=== PATIENT | female | born 1950 | race Caucasian/White ===

== ENCOUNTER → 2019-11-11 | Outpatient (CLI) | payer MEDICARE, BC ==
[~2019-11-11] MED LIST: ATARAX PO; NEXIUM; NEXIUM40 MG PO; ZOLOFT
--- NOTE | 2019-11-11 09:26 | Diagnostic Imaging Report ---
EXAMINATION: CT of the abdomen and pelvis without contrast. TECHNIQUE: Spiral CT images of the abdomen and pelvis were performed from the lung bases to the lesser trochanters. No intravenous contrast was given per referring physician request. Coronal and sagittal reformatted images were obtained. COMPARISON: None. CLINICAL HISTORY:Abdominal pain, rectal pressure, rectal mass DISCUSSION: ABSENCE OF INTRAVENOUS CONTRAST DECREASES SENSITIVITY FOR DETECTION OF FOCAL LESIONS AND VASCULAR PATHOLOGY. ABDOMEN/PELVIS: LOWER THORAX: Minimal reticular opacities in the dependent lower lobes, likely atelectasis. Coronary artery calcifications. HEPATOBILIARY:No focal hepatic lesion or intrahepatic biliary dilatation. Small radiopaque calculi in the dependent gallbladder. No pericholecystic inflammation. SPLEEN: No splenomegaly or focal splenic lesion. PANCREAS: No focal masses or ductal dilatation. ADRENALS: No adrenal nodules. KIDNEYS/URETERS: No hydronephrosis, calculi, or solid or cystic mass lesions. PELVIC ORGANS/BLADDER: Urinary bladder is incompletely distended but otherwise unremarkable. Uterus is neutral in position and appears normal for age. No adnexal mass. PERITONEUM/RETROPERITONEUM: No ascites or pneumoperitoneum. LYMPH NODES: No pelvic sidewall, retroperitoneal, or mesenteric lymphadenopathy. There is an enlarged right mesorectal lymph nodes (8 mm) as seen on image 65. Additionally, there is a mildly enlarged left inguinal lymph node of abnormal morphology measuring 1.2 cm short axis. No fatty hilum is visualized. VESSELS: Atherosclerotic calcification of the abdominal aorta and major branch vessels without aneurysmal dilatation. Evaluation is otherwise limited in the absence of intravenous contrast. GI TRACT: Suspected nearly concentric rectal wall thickening to maximum of 1.5 cm as depicted on axial image 76. Large bowel is otherwise unremarkable, without additional wall thickening or distention. Appendix is normal. Large sliding hiatal hernia. No small bowel dilatation to suggest obstruction. BONES AND SOFT TISSUES: No osseous destructive lesions. Multilevel degenerative disc changes and facet arthropathy of the lumbar spine. No focal soft tissue abnormalities. IMPRESSION: Findings are concerning for a near circumferential rectal mass lesion, in keeping with the provided clinical history of rectal mass, and a prominent mesorectal lymph node is concerning for regional spread. Direct visualization by colonoscopy is suggested if not already performed. 1.2 cm left inguinal lymph node is of abnormal morphology and is not in the expected yakelin drainage pattern for a rectal malignancy. Tissue sampling of this node should be considered. Additional findings include a large hiatal hernia, cholelithiasis, and atherosclerotic vascular disease. Signed by: Dr. Ovi Alvarado M.D. on 11/11/2019 9:22 AM
== END ==
LOC: CT 07:24
PROVIDERS: ATTEND Internal Medicine Gastroenterology
DX: R10.84 Generalized abdominal pain (principal); K62.9 Disease of anus and rectum, unspecified
CPT/HCPCS: 74176

== ENCOUNTER → 2019-11-27 | Day surgery (SDC) | payer MEDICARE, BC, OTHER ==
[2019-11-24 14:01] LABS: BASOPHILS % 0.4 % (0.0-1.0); EOSINOPHILS # (AUTO) 0.2 (0.0-0.4); EOSINOPHILS % 1.9 % (0.0-6.0); HEMATOCRIT 40.9 % (34.2-44.1); LYMPHOCYTES # (AUTO) 2.6 (1.0-3.2); LYMPHOCYTES % 28.6 % (18.0-39.1); MEAN CORPUSCULAR HEMOGLOBIN 26.7 pg (28-32); MEAN CORPUSCULAR HGB CONC 31.8 g/dL (31-35); MEAN CORPUSCULAR VOLUME 84.2 fL (81-99); MONOCYTES # (AUTO) 0.6 (0.2-0.8); MONOCYTES % 7.1 % (4.4-11.3); NEUTROPHILS # (AUTO) 5.6 (2.1-6.9); NEUTROPHILS % 61.8 % (38.7-80.0); PLATELET COUNT 250 x10e3/uL (140-360); RED BLOOD COUNT 4.86 x10e6/uL (3.6-5.1); RED CELL DISTRIBUTION WIDTH 13.4 % (11.7-14.4)
[~2019-11-27] MED LIST changes: +ATENOLOL50 MG PO; +EPHEDRINE SULFATE INJ 50 MG/ML VIAL ONE; +ETOMIDATE 2 MG/ML 10 ML INJ IV ONE; +FENTANYL CITRATE/PF 100MCG/2 ML INJ ONE; +HYDROXYZINE HCL10 MG PO; +HYOSCYAMINE 0.125 MG TAB ONE; +LIDOCAINE HCL 2% LOCAL INJ 5 ML SDV VIAL INJ ONE; +PANTOPRAZOLE SO40 MG PO; +PROPOFOL IV EMULSION 10 MG/ML 20 ML VIAL ONE; +SERTRALINE HCL50 MG PO; +SIMVASTATIN20 MG PO
[2019-11-27 15:45] VITALS: BP 119/71
--- NOTE | 2019-11-27 16:24 | Operative Report ---
DATE OF PROCEDURE: 11/27/2019 SURGEON: Hector Ordaz MD PROCEDURES: Colonoscopy with polypectomy and biopsies. INDICATIONS FOR COLONOSCOPY: Rectal bleeding, anorectal pain. MEDICATIONS: The patient was done under MAC, please see anesthesiologist's note. PROCEDURE IN DETAIL: With the patient in left lateral decubitus position, a flexible fiberoptic Olympus colonoscope could not be inserted into the rectum due to the tightness of the anal canal caused by possibly an infiltrating tumor. The flexible fiberoptic Olympus gastroscope was then introduced into the rectum and a large 3/4 circumferential mass that was fungating, was noted to extend approximately 4 to 5 cm from the anal verge and appears to be extending through the dentate line. Biopsies were obtained for both frozen section as well as permanent section. The scope was then advanced all the way to the cecum. It was then withdrawn slowly, mucosa overlying the cecum, ascending colon, transverse colon appeared to be within normal limits. Two minute polyps were hot biopsied from the descending colon. The sigmoid colon appeared to be within normal limits. The scope was subsequently withdrawn. The patient tolerated the procedure well. IMPRESSION: 1. Descending colon polyps x2, minute, removed per hot biopsy forceps. 2. Rectal mass, 3/4 circumferential, extending approximately 4 cm from the anal verge and appears to extend through the dentate line. Multiple biopsies were obtained for both frozen and permanent sections. Initial reading on the frozen section is suspicious for anal cancer. The patient tolerated procedure well. PLAN: 1. Followup histology. 2. Oncology consult and a General Surgical consult will be requested. Hector Ordaz MD [facility] [place]/[facility] [place] /[id number] cc: MD Ronen Lester MD Andrew Metz, DO
== END | disposition home or self-care (01) ==
LOC: OR 10:50
PROVIDERS: ATTEND Internal Medicine Gastroenterology
DX: C20 Malignant neoplasm of rectum (principal); D12.4 Benign neoplasm of descending colon; K21.9 Gastro-esophageal reflux disease without esophagitis; K44.9 Diaphragmatic hernia without obstruction or gangrene; K58.9 Irritable bowel syndrome, unspecified; I10 Essential (primary) hypertension; E78.00 Pure hypercholesterolemia, unspecified; R53.1 Weakness; R00.1 Bradycardia, unspecified; F41.9 Anxiety disorder, unspecified; Z01.810 Encounter for preprocedural cardiovascular examination; Z01.812 Encounter for preprocedural laboratory examination; Z11.59 Encounter for screening for other viral diseases
CPT/HCPCS: 36415; 45380; 45384; 85025; 87635; 88305; 88331; 88342; 93005; J2001; J2704; J3010